=== PATIENT | female | born 1955 | race Caucasian/White ===

== ENCOUNTER → 2025-01-12 12:01 | Outpatient (CLI) | payer OTHER, SELFPAY ==
[2025-01-12 13:19] LABS: C-Reactive Protein Quant < 0.5 mg/dL (<1.0)
[2025-01-12 13:20] LABS: Erythrocyte Sedimentation Rate 13 MM/HR (0-20)
== END ==
PROVIDERS: PCP Nurse Practitioner; Referring Provider Nurse Practitioner; Visit Provider Orthopaedic Surgery Adult Reconstructive Orthopaedic Surgery
DX: Z96.651 Presence of right artificial knee joint (principal)
CPT/HCPCS: 36415; 85651; 86140

== ENCOUNTER 2025-05-31 06:04 | Inpatient (IN) | payer OTHER, SELFPAY ==
[2025-05-21 08:40] VITALS: BMI 38.2
[2025-05-31] VITALS (17 sets, daily range): BP systolic 108–146; BP diastolic 55–74; PULSE 71–99; RESP 11–21; TEMP 36.7–37.1; O2SAT 94–100; BMI 36.6
[2025-05-31] MEDS: ACETAMINOPHEN 325 MG TABLET 975 MG PO (07:03)
[2025-05-31] MEDS: LACTATED RINGERS 1,000 ML 42 ML IV ×2 (07:04→10:35)
--- NOTE | 2025-05-31 07:33 | PM.PREOP ---
Pre-operative Note Interval Note History & Physical reviewed/Exam performed by Physician: Yes Changes to H&P: No
--- NOTE | 2025-05-31 07:50 | DI.RAD.S_ITS ---
PROCEDURE: XR KNEE RT 2V INDICATIONS: post-op will knee arthroplasty TECHNIQUE: 2 views of the right knee acquired. COMPARISON: None. FINDINGS: Expected postoperative changes with soft tissue gas and soft tissue swelling status post right total knee arthroplasty with long stem femoral and tibial components. No radiographic evidence of periprosthetic fracture or high attenuation surgical instrument or foreign body. Electronic device with battery pack is noted adjacent to the mid femoral diaphysis laterally. Artifact from overlying brace and clothing partially limits radiographic detail. IMPRESSION: Expected post-operative appearance of a knee arthroplasty as discussed above. Dictated by: Mendel Feliciano M.D. on 05/31/2025 at 13:55 Approved by: Mendel Feliciano M.D. on 05/31/2025 at 13:58
[2025-05-31] MEDS: TRANEXAMIC ACID 1,000 MG VIAL 1000 MG INJ ×2 (08:00→12:06)
--- NOTE | 2025-05-31 08:36 | SUR.OPER ---
Supine on padded OR bed. Pillow under head, arms secured on padded armboards <90 degree abduction. Safety belt across torso. Non-operative leg secured with tape over blanket over lower leg. Operative leg secured in DeMayo/Ananda/Nathe positioner. Foam padded brace at thigh of operative leg. Gel pad under leg to protect mahmood line.
[2025-05-31] MEDS: VANCOMYCIN 500 MG VIAL 1000 MG INTRAOSSEO (08:45)
[2025-05-31] MEDS: KETOROLAC 30 MG/ML VIAL 15 MG INJ (09:21)
--- NOTE | 2025-05-31 13:07 | P.OP_ITS ---
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 Right Revision Total Knee Arthroplasty Using [employer] System (41288) 2. Robotic Assistance Using [employer] System (S2900) 3. Intraosseous Administration of Vancomycin (19067) Same procedure(s) as scheduled: Yes Surgeon: Yunior Billings Assisted?: Yes Supervisor [employer]: Mary Ochoa Anesthesia Type: General and Local Operative Notes Findings: Applied: implant(s) Estimated Blood Loss (mL): 200 Blood products transfused: none Tourniquet time (min): 180 Procedure in detail: 1. Right Revision Total Knee Arthroplasty Using [employer] System (45136) 2. Robotic Assistance Using [employer] System (S2900) 3. Intraosseous Administration of Vancomycin (78154) Implants: * Size 4 Legion Revision Oxinium Femoral Component with 10 mm distal/5 mm posterior L shaped augments both medially and laterally and 14 mm x 120 mm stem * Size 18 Femoral Cone * Size for Legion Revision Tibial Component with 10 mm finned wedge and 14 mm x 120 mm stem * Size 24 long Tibial Cone * Size 15 Azul II Constrained Polyethylene Insert * 32 mm Patella Procedure Summary: This 69-year-old female patient had radiographic evidence of loosening of her tibial component which had been placed over 20 years ago. She was brought to the operating room for revision. I found that the femoral and patellar components were also loose. There were cystic changes behind the bone on both the femoral and tibial sides. Due to the large keel on the prior tibial base plate there was significant central bone loss so a large cone was utilized in an attempt to fill this. The cortex began to thin both anteriorly and posteriorly with a 28 mm Reamer and a 24 mm cone was used which was sunk down as far as it could go. The cone did not have circumferential contact with host bone due to the severe nature of the bone loss around the tibia but had greater than 50% surface area contact with bone prior to cement introduction. The tibia was severely compromised due to the osteolysis without large central cyst. At 1 point a retractor posteriorly poked through the posterior cortex into the medullary canal. This did not leave a bony defect and retractors were carefully positioned during the remainder of the case to ensure that no additional compromise to the cortex occurred. Retraction also avulsed some of the tissue adjacent to the tibial tubercle and in order to protect the patellar tendon attachment on the tibial tubercle a quadriceps snip was utilized to minimize soft tissue tension in the extensor mechanism. This was repaired at the end using [employer]. She had a prior revision total hip arthroplasty with a long stem and I was able to visualize this through the femur while working on the femoral component. In order to limit stress riser formation I used a shorter stem on the femur and also placed cement all the way up to the bottom of the femoral component from the prior total hip arthroplasty and pressurized it in that area so as to limit stress riser formation. Procedure in Detail: This patient was seen preoperatively and evaluated for knee pain which was refractory to numerous nonoperative treatment modalities. After evaluation they were determined to be an appropriate candidate for revision knee arthroplasty. The risks and benefits of continued nonoperative management versus operative management were discussed at length and all of the patient?s questions were answered. With this understanding of the risks inherent to the procedure, the patient elected to move forward with operative management. Following preoperative optimization, the patient was scheduled for surgery. The patient was met in the preoperative holding area the day of the procedure and all questions were answered. The patient?s nares were swabbed in order to decolonize them from MRSA. Informed consent was signed and the right limb was marked with indelible ink.? The patient was brought back to the operating room where anesthesia was induced. The patient was transferred to the operating table and all bony prominences were padded. The operative site was prepped and draped in the usual sterile fashion. A second prep stick was utilized following drape placement. The incision was marked corresponding to the medial aspect of the tibial tubercle and the patella. Ioban was wrapped circumferentially around the knee. Prior to incision, tranexamic acid and cefazolin were administered. Templating images were displayed. A timeout procedure was performed verifying the patient?s identity, medical comorbidities, allergies, relevant medications, anesthesia type and the surgical plan. All present were in agreement. The assistance of a physician mri assistant was required for positioning, room setup, soft tissue retraction and wound closure. Without this assistance, the procedure would have been significantly more challenging and time consuming.?? The tourniquet was inflated prior to incision. I excised the old scar and made an anterior incision over the knee, dissected through the subcutaneous tissues and identified the lateral border of the VMO. Medial and lateral soft tissue flaps were developed. An intraosseous needle was introduced into the tibia and dilute vancomycin was infiltrated into the bone in order to fill the surgical field with dilute vancomycin via backflow from the tourniquet. A medial parapatellar arthrotomy was performed ensuring that adequate capsular tissue would remain for closure at the conclusion of the procedure. The knee was brought into extension and the medial soft tissues were released off the joint line of the tibia. Tissue overlying the distal anterior femur was released to allow for later assessment for anterior notching but left in place. A portion of the retropatellar fat pad was excised while protecting the patellar tendon. The patella was everted. The patella was noted to be grossly loose. I manipulated the patellar component with a [place] and it immediately was freed from the underlying bone. I left it in place and returned to it at the conclusion of the case so that I could use the old patellar component to protect the underlying patellar bone throughout the revision surgery. When I did returned to it I was able to utilize the old holes from the original 3 pegged patella and expanded them slightly with a bur in order to be able to fit the 3 pegged patella from this implant system into those original holes.. I inserted pins for the robotic array into the femur and tibia in areas which would eventually be within the cement mantle of the area were stems would be placed during final component implantation. I registered the robotic array using the [employer] robot and mapped the prior total knee arthroplasty using the robotic system to obtain the parameters of the previous total knee arthroplasty. ?I then took the knee through stressed and unstressed range of motion to evaluate the relative tension of the medial and lateral sides throughout a full arc of motion and constructed a plan for an eventual revision total knee arthroplasty that would result in a well-balanced knee. The plan involved 1 degree of varus on both the tibia and the femur. I excised the medial and lateral gutters and sent these for culture. I then proceeded with component removal. I 1st removed a locking pin from the polyethylene and removed the polyethylene insert. On the femoral side I introduced an osteotome underneath the anterolateral cortex and immediately noted that the femoral component was falling off so I removed it manually. This left all of the cement behind as no cement remained attached to the femoral component as can be seen in the photograph above. On the tibial side there was only fibrous tissue in the medial and lateral portions of the base plate. I was able to easily disrupt these with an osteotome. Posteriorly I passed a single sided reciprocating saw and used this to free up the fibrous tissue connecting the tibia in that area. I then tapped the tibia out using an impactor. The keel had an I-beam type shape to it and a significant amount of cement remained attached to that. Some bone also remained attached to the as can be seen in the picture above. Based on the plan for the eventual revision total knee arthroplasty which had been planned on the robotic system I then burred the distal femur. There was no bony contact with any of the areas that were burred away. Bird for 5 mm distal augments and this only burred away a small amount of bone. I burred away for 10 mm augments and got better bony contact. Posteriorly set the bur for 5 mm augments and removed bone both medially and laterally. I then moved onto the tibia. ?I initially removed the cement plug extending down the tibial canal by initially burring through it and then using osteotomes to fracture it before removing them with a rongeur. ?Once I had removed all of the cement in the tibial canal I then used the robotic system to plan the trajectory of a tibial cut which would match the resection that had been planned using the robotic system based on the soft tissue parameters of the knee. I attempted to utilize a saw but this interfered with the robotic array so I utilized a bur mode instead and burred away the tibia to get a flat surface corresponding to the robotic plan. I then trialed the primary implants for the tibia and femur respectively both manually and robotically. ?This involved stressing in varus and valgus in both flexion and extension and testing for flexion instability as well as passive range of motion of the knee in flexion and extension. I asessed this both manually and using the robotic system. I found that it was very hard to tell what the soft tissue balanced would be like due to the significant compromise in bone quality. I did not want to cause further damage so planned to wait too vigorously trial until after I had gotten components fixed. I did note at this point however that components on both the tibial and femoral sides had good contact with the very soft underlying host bone. I then removed the robotic arrays from the femur and tibia. I then prepped for cones in both the femur and the tibia. ?On the femoral side this involved placement of a primary knee trial, cutting for a box, placing a small rigid Reamer through the femoral trial, using a boss Reamer and subsequently a cone Reamer, and broaching on the femur with a corresponding size broach. ?On the tibia I freehand reamed to plan a final implant placement for the tibial cone which would match the joint line obliquity of the tibial resection. ?I placed cone trials in both the femur and the tibia and then placed implant trials which included the base plate augment on the tibia and the distal augments on the femur as well as stems for my planned stem sizes on the tibia and femur respectively. ?I again manually trialed and found that the components all fit appropriately and that the knee was appropriately balanced medial to lateral and with regards to flexion and extension throughout a full arc of motion. ?This involved stressing in varus and valgus in both flexion and extension and testing for flexion instability as well as passive range of motion of the knee in flexion and extension. I asessed this both manually and using the robotic system. ?I was satisfied with all parameters. Cones were inserted into the tibia and femur. The bony ends were irrigated and cement was prepared. Cement was placed on the entirety of the undersurface of the tibial component. Cement was placed onto the dry tibia and pressurized into the cancellous bone. Cement was placed down the tibial canal. There were some limited areas where the cement did interfere with the cone contact with surrounding bone, particularly laterally where there was a lot of bone loss from the cystic changes around the keel. I impacted the tibial component into place. Cement was removed. I let the tibial component dry entirely before moving onto the femur because of the severe nature of the bony changes in the tibia as I did not want to manipulate it in any way while the cement was drying. The tibia was reduced underneath the femur. A separate batch of cement was prepared. I placed cement onto the dry surface of the resected femur and down the canal. I placed cement all the way to the bottom of the prior revision hip stem. I placed the femoral component as well as the intended polyethylene trial. Cement was removed from around the femur. I brought the knee into extension and manually pressurized the construct by pushing on the heel while the cement dried. The patella was cemented in place. The knee was bathed in a dilute mixture of betadine and peroxide. A mixture of Ropivacaine, Epinephrine and Toradol was infiltrated throughout the soft tissues into structures including the VMO, patellar tendon, quadriceps tendon, MCL and femoral periosteum. The knee was copiously irrigated with pulse lavage. Once cement had been allowed to dry the knee was again trialed. Range of motion was assessed by ensuring the knee could achieve full extension and assessing maximum passive knee flexion by elevating the femur and allowing the heel to passively fall towards the buttock. Gap symmetry was assessed by stressing the medial and lateral compartments in both extension and flexion. Laxity was assessed in both extension and flexion and the polyethylene trial was adjusted with shims as necessary. Patellar tracking was assessed with knee flexion. The tourniquet was let down and the polyethylene trial was removed. I inspected the knee inspected for excess cement and any residual bleeding. Once hemostasis was achieved I inserted the final polyethylene and ensured appropriate engagement of the dovetail locking mechanism.?? The arthrotomy was closed with non-absorbable interrupted suture ensuring that this extended to the top of the arthrotomy. This was backed up with running barbed suture throughout the arthrotomy. The skin was closed with 2-0 and 3-0 sutures. Surgical glue was applied and a Safia incisional wound vacuum dressing was placed.?The sponge, instrument and needle counts were reported as being correct at the end of the case. The patient was transferred from the operating table back to a stretcher. The patient emerged from anesthesia without difficulty and was taken to the PACU in a stable condition.? Plan for aftercare: * Weightbearing as tolerated * Aspirin 81 twice per day for DVT prophylaxis * The Safia wound vac dressing should remain in place until clinic followup. The battery will after a week at which point the cord can be removed and it can be used as a normal dressing * Knee immobilizer to be left in place for a week * Oral tranexamic acid 1.95 mg per day for the next 3 days * Cefadroxil 500 mg twice per day for the next 7 days * Multimodal pain regimen with no IV opioids ordered * Anticipate discharge home tomorrow * Follow up at [facility] in 2 weeks for wound check Complications: none
[2025-05-31] MEDS: hydrOXYzine 50 MG/ML INJ 25 MG IM (13:32)
[2025-05-31] MEDS: ONDANSETRON 4 MG/2 ML INJ IV (13:32)
[2025-05-31] MEDS: LACTATED RINGERS 1,000 ML 100 ML IV (15:23)
--- NOTE | 2025-05-31 17:20 | PT.IIE ---
Current Diagnoses Mechanical loosening of internal right knee prosthetic joint, initial encounter (05/31/25) Surgery Performed Operation Date: 05/31/25 07:45 Actual Procedures p Total Knee Arthroplasty Revision - Robot(Right) - Yunior Billings MD Surgical History (Last Updated 05/21/25 @ 09:32 by Ana Luisa Lopez, RN) History of arthroscopy of left shoulder History of hip surgery History of hip surgery History of hysterectomy History of lumbar fusion (2016) History of revision of total replacement of left hip joint History of revision of total replacement of right hip joint History of total left hip replacement History of total left knee replacement History of total replacement of left shoulder joint History of total replacement of right shoulder joint History of total right hip replacement History of total right knee replacement (2003) Hx of appendectomy Hx of arthroscopy of left knee Hx of arthroscopy of right knee Hx of fusion of cervical spine (2017) Hx of gastric bypass (03/17/05) Medical History (Last Updated 05/21/25 @ 09:23 by Ana Luisa Lopez RN) HLD (hyperlipidemia) Loosening of prosthesis of right knee joint Physical Therapy Inpatient Evaluation/Re-Eval M1 PT IP Prior Functional Status Start: 05/31/25 15:23 Freq: NEEDED Status: Active Protocol: Document 05/31/25 16:11 [facility] (Rec: 05/31/25 18:20 [facility] [id number]) Medical Review Prior Functional Status Medical History Yes Reviewed Diet/Fluid Regular Consistency Communication WNL Mobility and Gait indep w/o AD, walks slowly Activities of Daily dress self, bath self, drives, cooks, does a Living and IADL's lot of cleaning Social History Household Members significant other Living Arrangements House Number of Floors ( One Floor Floors) Number of Stairs To none Enter/Railing? Home Environment High Toilet,Walk in Shower,Built-In Shower Seat Home Equipment Front Wheel Walker,Straight Cane,Manual Wheelchair, Bedside Commode,Hand Held Shower,Event Security Officer,Bed Rails,Grab Bars Near Toilet,Grab Bars In Shower Employment Status Retired Additional Social belong to [employer] so have access to equipment History Comment M2 PT-IP Current Condition Start: 05/31/25 15:23 Freq: NEEDED Status: Active Protocol: Document 05/31/25 16:11 [facility] (Rec: 05/31/25 18:20 [facility] [id number]) Physical Therapy Current Condition Current Condition Evaluation Date 05/31/25 Treatment Diagnosis R TKA revision M3 PT-IP Subjective Start: 05/31/25 15:23 Freq: NEEDED Status: Active Protocol: Document 05/31/25 16:11 [facility] (Rec: 05/31/25 18:20 [facility] [id number]) Subjective Physical Therapy Visit Type Type Initial Evaluation Visit Start Time 16:05 Visit Stop Time 17:06 Number of COOLING ROOM ATTENDANT Visits 0 Therapy Pain Assessment Pain When Pain Assessed At Rest Pain Present Pain Present Pain Reported Location R leg Intensity 4 Scale Used Numeric (0 - 10) M4 PT-IP Mobility and Gait Start: 05/31/25 15:23 Freq: NEEDED Status: Active Protocol: Document 05/31/25 16:11 [facility] (Rec: 05/31/25 18:20 [facility] [id number]) PT-Bed Mobility Assessment Supine to Sit Supine to Sit Maximum Assistance,1 Person Assistance Scooting Scooting to Edge of Maximum Assistance Bed PT-Transfer Assessment Sit to and From Stand Sit to and from Contact Guard Assistance,Use of Upper Extremities Stand Equipment Transfer Assistive Gait Belt,Front Wheeled Walker Device Orthotic/Prosthetic Yes Devices or Brace: Comments Mobility Comments supine BP 146/70 and seated BP 163/82 max A for bed mobility w/max cues d/t pain in R quad region. sit to stand CGA w/cues for LE placement and UE placement. Pt amb w/cues for step to sequence with FWW. Pt amb to window then bathroom and sat on toilet w/bar CGA. REquired assist to wipe but sit to stand CGA then amb to chair CGA w/FWW and cues for step sequence. CGA to lower to chair w/cues for LE placement. LEft with call light in reach Gait Assessment Gait Gait Assistance Contact Guard Assist Required: Distance (Feet) 20 Able to Maintain Yes Weight Bearing Status During Gait Assistive Devices Assistive Device Gait Belt,Front Wheeled Walker Orthotic/Prosthetic Yes Devices or Brace: Gait Deviations General Gait Pattern Decreased Stride Length,Decreased Feet Clearance,Step- to Gait PT-Balance Assessment Sitting Balance and Reactions Static Sitting Normal Balance Ability Dynamic Sitting Normal Balance Ability Standing Balance and Reactions Static Standing Fair Balance Ability Dynamic Standing Fair Balance Ability Device Used FWW M5 PT-IP Objective Assessments Start: 05/31/25 15:23 Freq: NEEDED Status: Active Protocol: Document 05/31/25 16:11 [facility] (Rec: 05/31/25 18:20 [facility] [id number]) Orientation Orientation/Cognition Level of Alertness Alert Language Function No Deficits Noted Ability Safety Awareness Understands Safety Issues Memory Description No Deficits Noted Gross Range of Motion Lower Extremity ROM Assessment Right Impaired Impairments in brace Strength Lower Extremity Strength Assessment Right Impaired M6 PT-IP Treatment Start: 05/31/25 15:23 Freq: NEEDED Status: Active Protocol: Document 05/31/25 16:11 [facility] (Rec: 05/31/25 18:20 [facility] [id number]) Physical Therapy Treatment Exercises Exercises Ankle Pumps Education Education Provided Precautions,Weight Bearing Status,Post-Op Packet,Safety M7 PT-IP Assessment and Plan Start: 05/31/25 15:23 Freq: NEEDED Status: Active Protocol: Document 05/31/25 16:11 [facility] (Rec: 05/31/25 18:20 [facility] [id number]) PT Summary Assessment and Plan Potential Rehabilitation Good Potential Status of Condition Evolving at Evaluation Summary Impairments Pain,ROM,Strength,Balance,Sensation,Bed Mobility, Transfers,Gait,Activity Tolerance Assessment Summary Pt presents day of R TKA revision with hx of multiple surgeries and other painful areas including sciatica pain in LLE. She had significant pain w/bed mobility and required max A but did well with gait and transfers when cued only requiring CGA. She has a very supportive and well set up house with appropriate equipment, but may benefit from HH Initially if pain cont to dec mobility. Goals Bed Mobility Goal Standby Assistance Transfer Goal Standby Assistance Gait Goal Standby Assistance,Front Wheel Walker Gait Distance 100ft Other Goals up 1 step Days to Meet Goals 5 Frequency of Treatment Frequency Of Twice a Day Treatment Treatment Plan Physical Therapy Bed Mobility Training,Transfer Training,Gait Training, Treatment Plan Therapeutic Exercise,Balance Retraining,Post Op Education,Discharge Planning,Hot or Cold Pack, Neuromuscular Re-ed,Coordination Retraining,Manual Therapy Other bed mobility, gait Recommendations and Next Treatment Focus Precautions Brace knee ext brace at all times Weight Bearing Status Weight Bearing Weight Bear as Tolerated Status Recommendations To Nursing Amount of Assist 1 Person Assist Needed Discharge Recommendations PT Discharge Home with Assistance,Home Health Recommendations Transportation Needs Private Vehicle at Discharge - PT assist 1
[2025-05-31] MEDS: ASPIRIN EC 81 MG TABLET PO (20:34)
[2025-05-31] MEDS: PRAVASTATIN 20 MG TABLET 40 MG PO (20:34)
[2025-06-01 07:30] VITALS: BP 115/55; PULSE 74; RESP 16; O2SAT 98
--- NOTE | 2025-06-01 08:05 | PM.DS.IH.1 ---
History of Present Illness History of Present Illness Date Patient Seen: 06/01/25 Chief complaint: R Total Knee Revision Narrative: Gabi is a pleasant 69 year old female who is seen today on POD#1 s/p revision right total knee arthroplasty by Dr. Billings. This morning patient reports she is struggling w/ pain control, she felt much better yesterday but this morning is having difficulty getting comfortable. She has been getting alternating 5mg Oxycodone and 50mg Tramadol every 2 hours about. She worked with PT yesterday and made good progress but has not yet worked with PT this morning. She has been urinating however after urinating bladder scan revealed 417mL of residual volume and she was then straigh cathed which resulted in 800mL of urine. In the afternoon PVR volume was 517mL. Patient admits she has had issues w/ fully emptying her bladder in the past, she has seen urology previously for this. The patient has good support at home from her , has post-op pain meds already, has PT set up. Denies any fever, chills, chest pain, SOB, nausea. Discharge Providers Provider Date of admission: 05/31/25 06:04 Discharge Date: 06/01/25 Primary care physician: BI Reno Consults: 05/31/25 14:07 Consult to Discharge Planning Routine Comment: Consult to Physical Therapy Evaluate & Treat Comment: Physician Instructions: Evaluate and Treat Discharge provider: Mary Ochoa PA-C Summary Hospital Course Discharge Diagnosis: Stable status post right revision knee arthroplasty Hospital Course: Lare[place] uncomplicated hospital course, she did have some high postvoid residual volumes. Status at Discharge Cognitive/behavioral status at discharge: oriented Exam Vital Signs (past 8 hours): Oxygen Delivery Method Nasal Cannula Oxygen Flow Rate 0 Narrative Exam Narrative: Patient sitting comfortably in bedside chair during our interview today. No acute distress. AOx3. 5/5 strength with DF, PF, EHL bilaterally. Gross sensation intact throughout bilateral lower extremities. Calves soft and non-tender bilaterally. SCDs are on and functioning. Brisk capillary refill, pulses intact. Post-surgical safia dressing clean, dry and intact over the right knee without drainainge. 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 Plan of Treatment: 1) Plan to discharge to home today with pending PT evaluation. 2) Continue multimodal pain management with ice to the knee for additional pain control. I would prefer patient to just take 10mg Oxycodone instead of alternating 50 mg tramadol and 5 mg oxycodone. I instructed that if needed she can take 2 of her 5mg Oxycodone tablets she has at home for improved pain control at home over these next few days. I have also sent an Rx for Journavx if insurance will cover. 3) ASA b.i.d. for DVT prophylaxis. 4) Start outpatient physical therapy to work on range of motion and mobility. 5) Keep dressing intact, clean, dry until 2 week postop appointment. No soaking the incision site in pools or tubs. No topical ointments or creams to the incision site. 6) Follow up at [facility] in 2 weeks for a postop appointment and wound check. If urinary retention has been a chronic issue for patient and she can still urinate on her own and she feels this is her baseline I am okay to d/c today w/ outpatient PCP or urology f/u. All patient's questions were answered, they demonstrates understanding and are in agreement with the plan. Call our office if any questions or concerns arise. Discharge Plan Discharge Plan Patient Disposition: Home Discharge orders & Medications Prescriptions: New tranexamic acid 650 mg tablet 1,950 mg PO .QD 3 Days Qty: 9 0RF aspirin 81 mg capsule 81 mg PO BID 45 Days Qty: 90 0RF cefadroxil 500 mg capsule 500 mg PO BID 10 Days Qty: 20 0RF Journavx 50 mg tablet 50 mg PO Q12H PRN (Reason: pain) Qty: 30 0RF Continued pravastatin 40 mg tablet 40 mg PO BEDTIME docusate sodium [Colace] 100 mg capsule 100 mg PO BID PRN (Reason: constipation) Qty: 60 0RF acetaminophen [Tylenol Extra Strength] 500 mg tablet 1,000 mg PO Q8H PRN (Reason: post-op pain) Qty: 60 0RF pravastatin 10 mg tablet 10 mg PO DAILY polyethylene glycol 3350 [Miralax] 17 gram/dose powder 17 g PO BID Changed oxycodone 5 mg tablet 5 mg PO Q4H PRN (Reason: pain) Qty: 30 0RF Discontinued oxycodone-acetaminophen 5-325 mg tablet 1 tab PO TID PRN (Reason: pain) Patient Comments: patient reports only taking at night Follow up/Referrals: Jesus Soria ARNP [Primary Care Provider, Family Practice] Diet/Activity/Treatments Diet: Diet as Tolerated Activity: Weight bearing as tolerated, keep your knee immobilizer/brace in place for a one week Cold/Heat Therapy: Ice your knee frequently to help reduce pain and swelling. Skin/Wound/Dressing Care Report to your healthcare provider any signs of infection, such as:: chills, fever, night sweats, unusual drainage and unusual redness Dressing: The Safia wound vac dressing should remain in place until clinic followup. Okay to shower, no soaking in baths or pools. The battery will after a week at which point the cord can be removed and it can be used as a normal dressing. Olvin bandage can be removed to take a shower on post-op day 3. Visit Report/Discharge Packet Instructions: DI for Prescription Opioid Use Stand Alone Forms: Patient Portal/API, Stroke Signs & Symptoms Discharge Data Primary Care Provider: Jesus Soria Quality VTE Deep Vein Thrombosis/Pulmonary Embolism Present on Admission: No IH PROFEE Charge Codes Discharge inpatient/observation: [id number]
[2025-06-01] MEDS: ASPIRIN EC 81 MG TABLET PO ×2 (08:26→22:22)
[2025-06-01] MEDS: ACETAMINOPHEN 325 MG TABLET 975 MG PO ×2 (08:27→17:12)
--- NOTE | 2025-06-01 08:58 | PT-IP ANOTE ---
Attempted Physical Therapy treatment. Pt reports she is in too much pain this morning. She was up with nursing earlier today with 10/10 right knee pain. She is back in bed at this time with 8/10 knee pain with ice on knee. Will check back later today for Physical Therapy treatment as her pain is better controlled.
[2025-06-01] MEDS: TRANEXAMIC ACID 2,000 MG in SODIUM CHLORIDE 0.9% 100 ML 200 MG IV (09:25)
--- NOTE | 2025-06-01 09:33 | CM.DANOTE ---
Initial DCP Assessment Note. Review EMR and PT Interview. Met with patient at bedside to discuss discharge needs.PT is alert x 4 sitting up in chair. No acute distress. Independent with DME. Lives with spouse. Payor:??Max PCP: Summary & Plan:?69y/o female s/p Elective Right Knee Hardware Loosening Repair. Plan: Pain control and PT Eval. Discharge Planning/Care Management CM Discharge Assessment Start: 05/31/25 06:36 Freq: Status: Active Protocol: Document 06/01/25 09:23 (Rec: 06/01/25 09:33 [id number]) Discharge Planning Assessment Assigned Discharge Isabella Acosta RN CM Plunger Shovel Operator Provider Dr. Yang [facility] Advance Directives? Yes Advance Directives Yes on File History Provided By Patient,Medical Record Has Patient been No admitted in last 30 days? Prior Living House Arrangements Household Members significant other Independent with ADL Yes 's Is patient alert and Yes oriented? DME Already Rented / Bath Bench,Wheelchair,FWW / Walker,Cane Owned Patient/Family OP PT Therapy Preference Comment Physical Therapy Company: [facility] [place], [place]. Scheduled. Barriers to No Discharge Referrals Initiated None needed Review Status In Process Please Provide Date 06/01/25 Initial DC Assessment Was Performed Next Review Type Continued Stay Review Pre-Anesthesia Assessment Start: 05/21/25 08:39 Freq: Status: Active Protocol: Document 05/21/25 08:40 CAB (Rec: 05/21/25 09:44 CAB [id number]) Pre-Anesthesia Assessment Information obtained Phone via Height 152.4 cm Weight 88.904 kg Body Mass Index (BMI 38.2 ) Has patient seen a Yes specialist in last 12 months? If yes, specialist Orthopedist seen Patient hospitalized Yes or treated in the ER in the last year? Patient experienced None in the last year Patient experienced No syncope or dizziness in the last year? Does patient have None history of Has patient ever had No a blood clot? Is patient on No anticoagulant therapy? Does patient have a No tubing machine tender? Does patient have No history of a pacermaker/ICD? Cardiac Clearance Not Applicable Received Can patient climb a Unable to climb stairs due to knee flight of stairs without shortness of breath? Can patient walk Yes around the grocery store without shortness of breath? Does patient have None history of Has patient ever No been to ER/ hospitalized for asthma/COPD? Taken steroids for No asthma or COPD in the last year? Does patient use No oxygen at home? Does patient have No history of Sleep Apnea? Patient uses CPAP/ No BiPAP? Cough or cold No symptoms in the past two weeks? Does patient have No any memory problems? Does patient have None history of History of weakness, No paralysis, or other residual effects of stroke/TIA? Mobility device(s) Cane,FWW used Has patient fallen No within the past year ? Does patient have a No neurostimulator or pain stimulator? Does patient have Yes chronic pain? Does patient have No history of GERD? Special dietary No needs or difficulty swallowing? Does patient have No history of kidney/ liver problems/ disease? Does patient have No Diabetes? HgbA1C 5.4 Date 03/02/25 Insulin pump or No continuous glucose monitor? GLP-1? No Does patient have No history of thyroid problems? Is patient ? No Is patient No ? Does patient have No history of cancer? If yes, received No radiation? If breast cancer, No any limitations regarding BP cuff or IV placement? Alcohol intake holidays/special occasions only Smoking status Never smoker Marijuana product No use? Other substance use None Does patient have No history of anesthesia reactions ? Family history of No anesthesia reactions ? Patient/family No member history of Malignant Hyperthermia? Does patient have No history of a blood transfusion reaction ? Anesthesia Review No Requested Patient has Advanced Yes Directive and/or Power of Logistics Team Lead? Does patient have Yes assistance after surgery? Who is driving Kiran Foley (S.O.) patient home after surgery? Phone number [phone] Relationship to Significant Other patient PAC Instructions Assistance for 24 hours post-op,Do not shave/clip surgical site,Durable medical equipment,Medications to take/avoid,Nasal antibiotic,No ETOH/petroleum product on skin DOS,NPO,Post-op transportation,Pre-surgical wash,Sturdy shoes/comfortable clothes,Do not bring valuables and remove jewelry
--- NOTE | 2025-06-01 12:20 | PT.IPTN ---
Current Diagnoses Mechanical loosening of internal right knee prosthetic joint, initial encounter (05/31/25) Surgery Performed Operation Date: 05/31/25 07:45 Actual Procedures p Total Knee Arthroplasty Revision - Robot(Right) - Yunior Billings MD Physical Therapy Treatment Note M2 PT-IP Current Condition Start: 05/31/25 15:23 Freq: NEEDED Status: Active Protocol: Document 05/31/25 16:11 [facility] (Rec: 05/31/25 18:20 [facility] [id number]) Physical Therapy Current Condition Current Condition Evaluation Date 05/31/25 Treatment Diagnosis R TKA revision M3 PT-IP Subjective Start: 05/31/25 15:23 Freq: NEEDED Status: Active Protocol: Document 06/01/25 12:20 DLM (Rec: 06/01/25 13:44 DLM Desktop) Subjective Physical Therapy Visit Type Type Treatment Note Visit Start Time 11:38 Visit Stop Time 12:20 Notes 42 min Number of LOAN ASSISTANT Visits 0 Physical Therapy Visit Comments Patient Comments Her pain is better now then it was earlier this morning . She is tolerating sitting in the recliner better. She can use her lift recliner at home if needed. She has the option of using an adjustable bed at home. She has out-pt Physical Therapy appointments scheduled for after discharge. Patient Goals Discharge home M4 PT-IP Mobility and Gait Start: 05/31/25 15:23 Freq: NEEDED Status: Active Protocol: Document 06/01/25 12:20 DLM (Rec: 06/01/25 13:44 DLM Desktop) PT-Bed Mobility Assessment Sit to Supine Sit to Supine Minimal Assistance,Bedrails Scooting Scooting to Edge of Minimal Assistance Bed PT-Transfer Assessment Sit to and From Stand Sit to and from Contact Guard Assistance,Use of Upper Extremities Stand Equipment Transfer Assistive Gait Belt,Front Wheeled Walker Device Orthotic/Prosthetic Yes Devices or Brace: Transfers Transfer Destination Bed Transfer Technique Stand Step Pivot Transfer Ability Level of Assist Contact Guard Assistance Comments Mobility Comments Pt was up in recliner at the start of this visit. She needs assist to support right LE when leg rest of recliner put down. Pt returned to bed to rest after gait with ice machine applied. She needs verbal reminders during sit-stand to kick right foot out to manage the knee immobilizer. Her is able to assist right LE in/out of bed. Gait Assessment Gait Gait Assistance Standby Assistance Required: Distance (Feet) 60 Assistive Devices Assistive Device Gait Belt,Front Wheeled Walker Orthotic/Prosthetic Yes Devices or Brace: Gait Deviations General Gait Pattern Decreased Stride Length,Decreased Feet Clearance,Step- to Gait Factors Limiting Gait Function Factors Limiting Decreased Activity Tolerance,Decreased Strength,Limited Gait Function Range of Motion,Pain,Poor Balance Comments Gait Comments right knee immobilizer on throughout this visit educated pt to avoid right knee flexion during gait to prevent fighting the knee immobilizer PT-Balance Assessment Sitting Balance and Reactions Static Sitting Good Balance Ability Dynamic Sitting Good Balance Ability Standing Balance and Reactions Static Standing Good Balance Ability Dynamic Standing Fair Balance Ability Device Used fWW M5 PT-IP Objective Assessments Start: 05/31/25 15:23 Freq: NEEDED Status: Active Protocol: Document 05/31/25 16:11 [facility] (Rec: 05/31/25 18:20 [facility] [id number]) Orientation Orientation/Cognition Level of Alertness Alert Language Function No Deficits Noted Ability Safety Awareness Understands Safety Issues Memory Description No Deficits Noted Gross Range of Motion Lower Extremity ROM Assessment Right Impaired Impairments in brace Strength Lower Extremity Strength Assessment Right Impaired M6 PT-IP Treatment Start: 05/31/25 15:23 Freq: NEEDED Status: Active Protocol: Document 06/01/25 12:20 DLM (Rec: 06/01/25 13:44 DLM Desktop) Physical Therapy Treatment Exercises Exercises Ankle Pumps,Gluteal Sets,Quad Sets,Straight Leg Raises Education Education Provided Precautions,Weight Bearing Status,Post-Op Packet,Safety Other Treatments Other Treatment other exercises: hamstring sets Performed assisted pt with straight leg raises in brace Her was present today and participate in activity and education. M7 PT-IP Assessment and Plan Start: 05/31/25 15:23 Freq: NEEDED Status: Active Protocol: Document 06/01/25 12:20 DLM (Rec: 06/01/25 13:44 DLM Desktop) PT Summary Assessment and Plan Summary Impairments Pain,ROM,Strength,Balance,Sensation,Bed Mobility, Transfers,Gait,Activity Tolerance Progress Towards Progressing Toward Goals Goals Assessment Summary Gabi is progressing slowly but well this visit, POD 1. She needs less assist for mobility and was able to increase her distance of gait with the FWW. She needs verbal reminders in how to manage right LE with knee immobilizer in place. She has a supportive who is prepared to assist her at home. She appears safe to discharge home when she is medically cleared. Goals Bed Mobility Goal Standby Assistance Transfer Goal Standby Assistance Gait Goal Standby Assistance,Front Wheel Walker Gait Distance 100ft Other Goals up 1 step Days to Meet Goals 5 Frequency of Treatment Frequency Of Twice a Day Treatment Treatment Plan Physical Therapy Bed Mobility Training,Transfer Training,Gait Training, Treatment Plan Therapeutic Exercise,Balance Retraining,Post Op Education,Discharge Planning,Hot or Cold Pack, Neuromuscular Re-ed,Manual Therapy Precautions Brace pt to wear right knee immobilizer at all times per surgeon note Other Precautions urine retention this admission Weight Bearing Status Weight Bearing Weight Bear as Tolerated Status Allowed Weight right LE with FWW, knee brace on Bearing Amount ( enter % or #) (%) Recommendations To Nursing Amount of Assist 1 Person Assist Needed Discharge Recommendations PT Discharge Home with Assistance,Outpatient PT Recommendations Other Discharge pt has assist from Spouse and has out-pt PT scheduled Recommendations Transportation Needs Private Vehicle at Discharge - PT assist 1
--- NOTE | 2025-06-01 16:13 | PC.NURSE ---
When questioned this am, pt expressed feeling of not being able to fully empty bladder. Her PVR was 471mL. TUAN Ochoa informed and ordered straight cath, which resulted in 800 mL of urine. Pt voided this afternoon, and PVR 571mL, but pt states that she feels like she is at her baseline and has struggled with this before. TUAN Ochoa informed and ok with pt leaving under these circumstances as long as she does in fact feel that she is at her baseline.
--- NOTE | 2025-06-01 16:24 | PT.IPTN ---
Current Diagnoses Mechanical loosening of internal right knee prosthetic joint, initial encounter (05/31/25) Surgery Performed Operation Date: 05/31/25 07:45 Actual Procedures p Total Knee Arthroplasty Revision - Robot(Right) - Yunior Billings MD Physical Therapy Treatment Note M2 PT-IP Current Condition Start: 05/31/25 15:23 Freq: NEEDED Status: Active Protocol: Document 05/31/25 16:11 [facility] (Rec: 05/31/25 18:20 [facility] [id number]) Physical Therapy Current Condition Current Condition Evaluation Date 05/31/25 Treatment Diagnosis R TKA revision M3 PT-IP Subjective Start: 05/31/25 15:23 Freq: NEEDED Status: Active Protocol: Document 06/01/25 16:24 [facility] (Rec: 06/01/25 16:36 [facility] Desktop) Subjective Physical Therapy Visit Type Type Treatment Note Visit Start Time 15:50 Visit Stop Time 16:24 Notes 34 min Number of DRIER AND PULVERIZER TENDER Visits 0 Physical Therapy Visit Comments Patient Comments She has been getting up to the bathroom with nursing today. She reports her knee pain is worse this afternoon. She describes her knee pain as the worst than it has been during gait this visit. She does not feel she could tolerate the one hour drive home tonight due to the pain. Patient Goals Get better to go home. Therapy Pain Assessment Pain When Pain Assessed During Mobility Pain Present Pain Present Pain Reported Location Right Knee Intensity 10 Scale Used Numeric (0 - 10) Description Aching,Stabbing,Tender Pain Behaviors Facial Grimacing,Guarding,Wincing Pain Management Apply Cold,Modification of Treatment,Re-positioning, Techniques Timing of Activity with Medications M4 PT-IP Mobility and Gait Start: 05/31/25 15:23 Freq: NEEDED Status: Active Protocol: Document 06/01/25 16:24 [facility] (Rec: 06/01/25 16:36 [facility] Desktop) PT-Bed Mobility Assessment Supine to Sit Supine to Sit Moderate Assistance,Bedrails Sit to Supine Sit to Supine Minimal Assistance,Bedrails Scooting Scooting to Edge of Minimal Assistance Bed PT-Transfer Assessment Sit to and From Stand Sit to and from Contact Guard Assistance,Use of Upper Extremities Stand Equipment Transfer Assistive Gait Belt,Front Wheeled Walker Device Orthotic/Prosthetic Yes Devices or Brace: Transfers Transfer Destination Bed Transfer Technique Stand Step Pivot Transfer Ability Level of Assist Contact Guard Assistance Comments Mobility Comments She needs verbal reminders during sit-stand to kick right foot out to manage the knee immobilizer. Her is able to assist right LE in/out of bed. She needs assist for right LE getting in/out of bed with increased pain reported. Gait Assessment Gait Gait Assistance Standby Assistance Required: Distance (Feet) 20 Assistive Devices Assistive Device Gait Belt,Front Wheeled Walker Orthotic/Prosthetic Yes Devices or Brace: Gait Deviations General Gait Pattern Decreased Stride Length,Decreased Feet Clearance,Step- to Gait Factors Limiting Gait Function Factors Limiting Decreased Activity Tolerance,Decreased Strength,Limited Gait Function Range of Motion,Pain,Poor Balance Comments Gait Comments right knee immobilizer on throughout this visit PT-Balance Assessment Sitting Balance and Reactions Static Sitting Good Balance Ability Dynamic Sitting Good Balance Ability Standing Balance and Reactions Static Standing Good Balance Ability Dynamic Standing Fair Balance Ability Device Used fWW M5 PT-IP Objective Assessments Start: 05/31/25 15:23 Freq: NEEDED Status: Active Protocol: Document 05/31/25 16:11 [facility] (Rec: 05/31/25 18:20 [facility] [id number]) Orientation Orientation/Cognition Level of Alertness Alert Language Function No Deficits Noted Ability Safety Awareness Understands Safety Issues Memory Description No Deficits Noted Gross Range of Motion Lower Extremity ROM Assessment Right Impaired Impairments in brace Strength Lower Extremity Strength Assessment Right Impaired M6 PT-IP Treatment Start: 05/31/25 15:23 Freq: NEEDED Status: Active Protocol: Document 06/01/25 16:24 [facility] (Rec: 06/01/25 16:36 [facility] Desktop) Physical Therapy Treatment Exercises Exercises Ankle Pumps Education Education Provided Precautions,Safety Other Treatments Other Treatment she reports having to much pain to do more exercises Performed this visit. Educated pt in wearing knee immobilizer and to monitor location of metal stays to prevent skin injury. Educated pt in pressure relief of right heel in supine. Ice machine applied to knee area after activity. M7 PT-IP Assessment and Plan Start: 05/31/25 15:23 Freq: NEEDED Status: Active Protocol: Document 06/01/25 16:24 [facility] (Rec: 06/01/25 16:36 [facility] Desktop) PT Summary Assessment and Plan Summary Impairments Pain,ROM,Strength,Balance,Sensation,Bed Mobility, Transfers,Gait,Activity Tolerance Progress Towards Slow Progress due to Pain Goals Assessment Summary Gabi reports increased knee pain this afternoon. Her distance of gait is limited this visit by her pain and is less then she could do this morning during Physical Therapy. Pt does not feel safe to discharge home today. Her Nurse was notified. Pt limited in her participation in therapy exercises and activity this visit due to pain. Her is present today and is very supportive. Will continue to work towards discharge home as her pain is better controlled to tolerate regular mobility/gait. Goals Bed Mobility Goal Standby Assistance Transfer Goal Standby Assistance Gait Goal Standby Assistance,Front Wheel Walker Gait Distance 100ft Other Goals up 1 step Days to Meet Goals 5 Frequency of Treatment Frequency Of Twice a Day Treatment Treatment Plan Physical Therapy Bed Mobility Training,Transfer Training,Gait Training, Treatment Plan Therapeutic Exercise,Balance Retraining,Post Op Education,Discharge Planning,Hot or Cold Pack, Neuromuscular Re-ed,Manual Therapy Precautions Brace pt to wear right knee immobilizer at all times per surgeon note Other Precautions urine retention this admission Weight Bearing Status Weight Bearing Weight Bear as Tolerated Status Allowed Weight right LE with FWW, knee brace on Bearing Amount ( enter % or #) (%) Recommendations To Nursing Amount of Assist 1 Person Assist Needed Discharge Recommendations PT Discharge Home with Assistance,Outpatient PT Recommendations Other Discharge pt has assist from Spouse and has out-pt PT scheduled Recommendations Transportation Needs Private Vehicle at Discharge - PT assist one
[2025-06-01 20:08] VITALS: BP 143/71; PULSE 75; RESP 16; TEMP 37.5; O2SAT 96
[2025-06-01] MEDS: PRAVASTATIN 20 MG TABLET 40 MG PO (20:24)
[2025-06-02 08:00] VITALS: BP 120/63; PULSE 79; RESP 16; TEMP 36.8; O2SAT 96
[2025-06-02] MEDS: ACETAMINOPHEN 325 MG TABLET 975 MG PO (09:40)
[2025-06-02] MEDS: ASPIRIN EC 81 MG TABLET PO (09:40)
[2025-06-02] MEDS: TRANEXAMIC ACID 2,000 MG in SODIUM CHLORIDE 0.9% 100 ML 200 MG IV (09:45)
--- NOTE | 2025-06-02 11:05 | PT.IPTN ---
Current Diagnoses Mechanical loosening of internal right knee prosthetic joint, initial encounter (05/31/25) Surgery Performed Operation Date: 05/31/25 07:45 Actual Procedures p Total Knee Arthroplasty Revision - Robot(Right) - Yunior Billings MD Physical Therapy Treatment Note M2 PT-IP Current Condition Start: 05/31/25 15:23 Freq: NEEDED Status: Active Protocol: Document 05/31/25 16:11 [facility] (Rec: 05/31/25 18:20 [facility] [id number]) Physical Therapy Current Condition Current Condition Evaluation Date 05/31/25 Treatment Diagnosis R TKA revision M3 PT-IP Subjective Start: 05/31/25 15:23 Freq: NEEDED Status: Active Protocol: Document 06/02/25 11:05 [facility] (Rec: 06/02/25 11:18 [facility] Desktop) Subjective Physical Therapy Visit Type Type Treatment Note Visit Start Time 10:30 Visit Stop Time 11:05 Notes 35 min Number of AUTOMATIC MACHINES SUPERVISOR Visits 0 Physical Therapy Visit Comments Patient Comments She reports she was able to get better sleep last night . She feels her pain has improved today with 1/10 knee pain at rest and 3-4/10 during gait. She feels getting in/out of bed is the most painful for her. Patient Goals Get better to go home. Therapy Pain Assessment Pain When Pain Assessed During Mobility Pain Present Pain Present Pain Reported Location Right Knee Intensity 4 Scale Used Numeric (0 - 10) Description Aching,Tender Pain Behaviors Guarding Pain Management Apply Cold,Elevation,Timing of Activity with Techniques Medications M4 PT-IP Mobility and Gait Start: 05/31/25 15:23 Freq: NEEDED Status: Active Protocol: Document 06/02/25 11:05 [facility] (Rec: 06/02/25 11:18 [facility] Desktop) PT-Transfer Assessment Sit to and From Stand Sit to and from Contact Guard Assistance,Use of Upper Extremities Stand Equipment Transfer Assistive Gait Belt,Front Wheeled Walker Device Orthotic/Prosthetic Yes Devices or Brace: Transfers Transfer Destination Chair,Toilet Transfer Technique Stand Step Pivot Transfer Ability Level of Assist Contact Guard Assistance,Use of Upper Extremities Comments Mobility Comments Pt has decided she will sleep in recliner at home at discharge to manage her knee pain. Pt is up in the recliner this visit and prefers to stay up. Pt up to toilet to urinate and have BM this visit. She shows improved awareness of kicking right foot out before sitting to manage the knee immobilizer. Ice machine placed on knee after activity with right LE elevated. Gait Assessment Gait Gait Assistance Standby Assistance Required: Distance (Feet) 100 Assistive Devices Assistive Device Gait Belt,Front Wheeled Walker Orthotic/Prosthetic Yes Devices or Brace: Gait Deviations General Gait Pattern Decreased Stride Length,Decreased Feet Clearance,Step- to Gait Factors Limiting Gait Function Factors Limiting Decreased Activity Tolerance,Decreased Strength,Limited Gait Function Range of Motion,Pain,Poor Balance Comments Gait Comments right knee immobilizer on throughout this visit PT-Balance Assessment Sitting Balance and Reactions Static Sitting Good Balance Ability Dynamic Sitting Good Balance Ability Standing Balance and Reactions Static Standing Good Balance Ability Dynamic Standing Good Balance Ability Device Used fWW M5 PT-IP Objective Assessments Start: 05/31/25 15:23 Freq: NEEDED Status: Active Protocol: Document 05/31/25 16:11 [facility] (Rec: 05/31/25 18:20 [facility] [id number]) Orientation Orientation/Cognition Level of Alertness Alert Language Function No Deficits Noted Ability Safety Awareness Understands Safety Issues Memory Description No Deficits Noted Gross Range of Motion Lower Extremity ROM Assessment Right Impaired Impairments in brace Strength Lower Extremity Strength Assessment Right Impaired M6 PT-IP Treatment Start: 05/31/25 15:23 Freq: NEEDED Status: Active Protocol: Document 06/02/25 11:05 [facility] (Rec: 06/02/25 11:18 [facility] Desktop) Physical Therapy Treatment Exercises Exercises Ankle Pumps Education Education Provided Safety Other Treatments Other Treatment education provided to pt and Spouse regarding car Performed transfers with use of knee immobilizer; slide front seat all the way back and recliner seat to get right LE into car or sit on back seat with right LE supported on back seat M7 PT-IP Assessment and Plan Start: 05/31/25 15:23 Freq: NEEDED Status: Active Protocol: Document 06/02/25 11:05 [facility] (Rec: 06/02/25 11:18 [facility] Desktop) PT Summary Assessment and Plan Summary Impairments Pain,ROM,Strength,Balance,Sensation,Bed Mobility, Transfers,Gait,Activity Tolerance Progress Towards Slow Progress due to Pain Goals Assessment Summary Gabi reports improved pain control today. She feels the Tramadol has been helpful. She tolerated gait better today with increased distance. Her Spouse is present and participates in education and training. Pt and her Spouse feel ready to go home today. Notified her nurse that pt appears safe for discharge home today . Goals Bed Mobility Goal Standby Assistance Transfer Goal Standby Assistance Gait Goal Standby Assistance,Front Wheel Walker Gait Distance 100ft Other Goals up 1 step Days to Meet Goals 5 Frequency of Treatment Frequency Of Twice a Day Treatment Treatment Plan Physical Therapy Bed Mobility Training,Transfer Training,Gait Training, Treatment Plan Therapeutic Exercise,Balance Retraining,Post Op Education,Discharge Planning,Hot or Cold Pack, Neuromuscular Re-ed,Manual Therapy Precautions Brace pt to wear right knee immobilizer at all times per surgeon note Other Precautions urine retention this admission Weight Bearing Status Weight Bearing Weight Bear as Tolerated Status Allowed Weight right LE with FWW, knee brace on Bearing Amount ( enter % or #) (%) Recommendations To Nursing Amount of Assist 1 Person Assist Needed Discharge Recommendations PT Discharge Home with Assistance,Outpatient PT Recommendations Other Discharge pt has assist from Spouse and has out-pt PT scheduled Recommendations Transportation Needs Private Vehicle at Discharge - PT assist one
--- NOTE | 2025-06-02 11:30 | PM.DS.IH.1 ---
History of Present Illness History of Present Illness Date Patient Seen: 06/02/25 Chief complaint: R Total Knee Revision Narrative: Gabi is a pleasant 69 year old female who is seen today on POD#2 s/p revision right total knee arthroplasty by Dr. Billings. This morning patient reports she is doing much better than yesterday, she states she felt like she turned the corner on her pain control last night. She tells me she was able to get 6 hours of sleep and is feeling refreshed this AM. She worked w/ PT this AM and states she had only mild pain while doing so. She has still been getting alternating Oxycodone and Tramadol for pain control. Yesterday she was having sensation of not fully emptying her bladder, she had a bladder scan that revealed 417mL of residual volume and she was then straigh cathed which resulted in 800mL of urine. In the afternoon (yesterday) PVR volume was 517mL. Patient admits she has had issues w/ fully emptying her bladder in the past, she has seen urology previously for this. The patient has good support at home from her , has post-op pain meds already, has PT set up. She feels ready to d/c today as her pain is now under better control and she has made good progress w/ PT. Denies any fever, chills, chest pain, SOB, nausea. Discharge Providers Provider Date of admission: 05/31/25 06:04 Discharge Date: 06/02/25 Primary care physician: [facility] [place] Consults: 05/31/25 14:07 Consult to Discharge Planning Routine Comment: Consult to Physical Therapy Evaluate & Treat Comment: Physician Instructions: Evaluate and Treat Discharge provider: Mary Ochoa PA-C Summary Hospital Course Discharge Diagnosis: Stable s/p revision R TKA Hospital Course: Hospital course complicated by poor pain control on POD#1, now improved on POD#2 and ready to d/c. She also had some issues w/ fully emptying her bladder, patient states this is chronic issue for her however and she feels this is her baseline. Status at Discharge Cognitive/behavioral status at discharge: oriented Functional status at discharge: uses cane/walker Time Spent with Patient Time spent: Less than 30 minutes Exam Vital Signs (past 8 hours): - 06/02/25 08:00 Temperature 98.2 F Pulse Rate 79 Respiratory Rate 16 Blood Pressure 120/63 Pulse Oximetry 96 Oxygen Flow Rate 0 Oxygen Delivery Method Nasal Cannula Oxygen Flow Rate 0 Narrative Exam Narrative: Patient sitting comfortably in bedside chair during our interview today. No acute distress. AOx3. 5/5 strength with DF, PF, EHL bilaterally. Gross sensation intact throughout bilateral lower extremities. Calves soft and non-tender bilaterally. SCDs are on and functioning. Brisk capillary refill, pulses intact. Post-surgical safia dressing clean, dry and intact over the right knee without drainainge. 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 History of hip surgery History of total left hip replacement History of total right hip replacement History of hip surgery History of total replacement of right shoulder joint History of arthroscopy of left shoulder History of total replacement of left shoulder joint History of hysterectomy Hx of appendectomy Hx of gastric bypass (03/17/05) History of total right knee replacement (2003) Social History household members: significant other Smoking Status: Never smoker alcohol intake: never Discharge Assessment & Plan Assessment and Plan Assessment: Stable s/p Revision R TKA, can d/c to home today. Plan of Treatment: 1) Plan to discharge to home today with . 2) Continue multimodal pain management with ice to the knee for additional pain control. I would prefer patient to stick to just one pain medication at a time, either Tramadol or 10mg Oxycodone rather than alternating. I discussed w/ patient the risks of combining pain medication. At this time patient feels the Tramadol and Tylenol combo have been working best for her and requests Tramadol Rx to be sent to her pharmacy. I discussed w/ patient that she cannot take the Tramadol w/ the Oxycodone and if she gets home and feels the Tramadol is not working well enough for her pain she should just switch to 10mg Oxycodone rather than alternating between these two medications. She states understanding. I have also sent an Rx for Journavx if insurance will cover, if approved, try to take this medication on it's own w/o the other opioid pain medication. 3) ASA b.i.d. for DVT prophylaxis. 4) Start outpatient physical therapy to work on range of motion and mobility. 5) Keep dressing intact, clean, dry until 2 week postop appointment. No soaking the incision site in pools or tubs. No topical ointments or creams to the incision site. 6) Follow up at [facility] in 2 weeks for a postop appointment and wound check. 7) Patient should follow up w/ PCP or urology outpatient for chronic urinary retention issues. All patient's questions were answered, they demonstrates understanding and are in agreement with the plan. Call our office if any questions or concerns arise. Discharge Plan Discharge Plan Patient Disposition: Home Discharge orders & Medications Prescriptions: New tranexamic acid 650 mg tablet 1,950 mg PO .QD 3 Days Qty: 9 0RF aspirin 81 mg capsule 81 mg PO BID 45 Days Qty: 90 0RF cefadroxil 500 mg capsule 500 mg PO BID 10 Days Qty: 20 0RF Journavx 50 mg tablet 50 mg PO Q12H PRN (Reason: pain) Qty: 30 0RF tramadol 50 mg tablet 50 mg PO Q6H PRN (Reason: pain) Qty: 30 0RF Continued pravastatin 40 mg tablet 40 mg PO BEDTIME docusate sodium [Colace] 100 mg capsule 100 mg PO BID PRN (Reason: constipation) Qty: 60 0RF acetaminophen [Tylenol Extra Strength] 500 mg tablet 1,000 mg PO Q8H PRN (Reason: post-op pain) Qty: 60 0RF pravastatin 10 mg tablet 10 mg PO DAILY polyethylene glycol 3350 [Miralax] 17 gram/dose powder 17 g PO BID Changed oxycodone 5 mg tablet 5 mg PO Q4H PRN (Reason: pain) Qty: 30 0RF Discontinued oxycodone-acetaminophen 5-325 mg tablet 1 tab PO TID PRN (Reason: pain) Patient Comments: patient reports only taking at night Follow up/Referrals: Jesus Soria ARNP [Primary Care Provider, Family Practice] Diet/Activity/Treatments Diet: Diet as Tolerated Activity: Weight bearing as tolerated, keep your knee immobilizer/brace in place for a one week Cold/Heat Therapy: Ice your knee frequently to help reduce pain and swelling. Skin/Wound/Dressing Care Report to your healthcare provider any signs of infection, such as:: chills, fever, night sweats, unusual drainage and unusual redness Dressing: The Safia wound vac dressing should remain in place until clinic followup. Okay to shower, no soaking in baths or pools. The battery will after a week at which point the cord can be removed and it can be used as a normal dressing. Olvin bandage can be removed to take a shower on post-op day 3. Visit Report/Discharge Packet Instructions: DI for Prescription Opioid Use Stand Alone Forms: Patient Portal/API, Stroke Signs & Symptoms Discharge Data Primary Care Provider: Jesus Soria VTE Deep Vein Thrombosis/Pulmonary Embolism Present on Admission: No [facility] PROFEE Charge Codes Discharge inpatient/observation: [id number]
--- NOTE | 2025-06-02 11:53 | CM.DPC ---
DCP Discharge Home Per Ortho PA, pt's pain seems better controlled today and working well with PT and medically stable to d/c home with outpt f/u and orders placed and no identified barriers to discharge. Per PT, pt has long hx of joint replacement surgeries and pt and spouse with much DME already at home and spouse capable and agreeable with providing assist at d/c and preference is to continue outpt PT after discharge but aware if appointments too difficult to get to with new knee immobilizer then they will need to call [facility] and request HH referral. Spouse agreeable with d/c plan. DAVIAN Hernández
--- NOTE | 2025-06-02 13:06 | PC.NURSE ---
Pt discharged home at 1248, escorted off floor in wheelchair accompanied by spouse and hospital staff. IV removed, discharge teaching completed including pain medication regimen, worsening symptoms and follow up appointments. Patient left the floor with all belongings.
== END 2025-06-02 13:07 | disposition home or self-care (01) | DRG 468 ==
PROVIDERS: Admitting Provider Orthopaedic Surgery Adult Reconstructive Orthopaedic Surgery; PCP Nurse Practitioner; Referring Provider Orthopaedic Surgery Adult Reconstructive Orthopaedic Surgery; Visit Provider Orthopaedic Surgery Adult Reconstructive Orthopaedic Surgery
PROC: 0SPC0JZ Removal of Synthetic Substitute from Right Knee Joint, Open Approach (ICD-10-PCS; principal; 2025-05-31 07:45)
DX: T84.032A Mechanical loosening of internal right knee prosthetic joint, initial encounter (principal); T84.052A Periprosthetic osteolysis of internal prosthetic right knee joint, initial encounter; G89.18 Other acute postprocedural pain; R33.9 Retention of urine, unspecified; E78.5 Hyperlipidemia, unspecified; Y79.2 Prosthetic and other implants, materials and accessory orthopedic devices associated with adverse incidents
CPT/HCPCS: 73560; 82962; 87070; 87075; 87176; 87205; 97110; 97116; 97162; 97530; C1776; C1713; J0689; J1100; J1171; J1885; J2405; J2704; J3010; J3374; J3410; J7050; J7120